=== PATIENT | female | born 1950 | race Caucasian/White ===

== ENCOUNTER → 2017-09-23 | Outpatient (CLI) | payer MEDICARE, OTHER ==
[~2017-09-23] MED LIST: ACIDOPHILUS1 EAC4 PO; AMITRIPTYLINE H25 M2 PO; ARICEPT10 M1 PO; ATORVASTATIN CA40 MG PO; CYMBALTA30 MG PO; CYPROHEPTADINE 44 MG PO; ELIQUIS2.5 MG PO; FLONASE 0.05%50 MCG NASAL; GABAPENTIN800 M1 PO; JARDIANCE25 MG PO; KLOR-CON 1010 MEQ PO; LASIX 40 MG TAB40 M2 PO; LIORESAL 10 MG10 MG PO; LISINOPRIL5 MG PO; LOPRESSOR100 M1 PO; LOW DOSE ASPIRI81 M1 PO; MACROBID 100 M100 M1 PO; MAGOX 400400 MG PO; METFORMIN HCL500 MG PO; MYSOLINE250 M1 PO; NITROGLYCERIN0.4 MG SUBLING; ONDANSETRON HCL8 M2 PO; ONDANSETRON ODT8 MG PO; PLAVIX 75 MG TA75 M1 PO; PRAVASTATIN SOD10 MG PO; PROTONIX40 M1 PO; TRULICITY0.75 MG/0. SUBQ; VESICARE10 M1 PO
--- NOTE | 2017-09-23 20:26 | 2DMMODE ---
[place] [address] 2 D/M-MODE ECHOCARDIOGRAM Name: ANNELIESE ABRAHAM Room: [facility]#: [id number] Admission: 09/23/17 Attend Phys: Dimitry Arellano, Discharge: Date of : 46 Date of Service: 09/23/172025 Report #: [id number] THIS REPORT FOR: //name// APPROVED REPORT Study performed: 09/23/2017 15:11:46 EXAM: Comprehensive 2D, Doppler, and color-flow Echocardiogram Patient Location: Out-Patient BSA: 1.64 HR: 74 bpm BP: 122/78 mmHg Other Information Study Quality: Good Indications Congestive Heart Failure Pacemaker 2D Dimensions LVEF(%): 59.18 (>50%) IVSd: 13.57 (7-11mm) LVOT Diam: 16.58 (18-24mm) LVDd: 38.96 mm PWd: 9.93 (7-11mm) Ascending Ao: 26.36 (22-36mm) LVDs: 26.93 (25-40mm) Aortic Root: 28.10 mm De Anda's LVEF: 59.18 % Volumes Left Atrial Volume (Systole) LA ESV Index: 43.80 mL/m2 Aortic Valve AoV Peak Tello.: 1.10 m/s AO Peak Gr.: 4.84 mmHg LVOT Max P.69 mmHg AO Mean Gr.: 2.86 mmHg LVOT Mean P.85 mmHg LVOT Max V: 0.65 m/s AO V2 VTI: 17.80 cm LVOT Mean V: 0.42 m/s ADOLFO (VTI): 1.56 cm2 LVOT V1 VTI: 12.86 cm AI Mobile: 2.48 m/s2 AI PHT: 578.20 [place] [address] 2 D/M-MODE ECHOCARDIOGRAM Name: MUMTAZ ABRAHAMA Room: [facility]#: [id number] Admission: 09/23/17 Attend Phys: Dimitry Arellano, Discharge: Date of : 46 Date of Service: 09/23/172025 Report #: [id number] E/A Ratio: 2.66 MV Decel. Time: 151.25 ms MV E Max Tello.: 0.75 m/s MV PHT: 43.86 ms MVA (PHT): 5.02 cm2 TDI E/Lateral E': 6.82 E/Medial E': 6.82 Medial E' Tello.: 0.11 m/s Lateral E' Tello.: 0.11 m/s Pulmonary Valve PV Peak Tello.: 0.74 m/s PV Peak Gr.: 2.20 mmHg Tricuspid Valve RAP Estimate: 5.00 mmHg TR Peak Gr.: 27.88 mmHg RVSP: 32.88 mmHg PA Pressure: 32.88 mmHg Left Ventricle The left ventricle is normal size. There is normal LV segmental wall motion. Mild concentric left ventricular hypertrophy. Left ventricular systolic function is normal. LVEF is 55-60%. This study is not technically sufficient to allow evaluation of the LV diastolic function. Right Ventricle The right ventricle is normal size. The right ventricular systolic function is normal. Defibrillator lead is present in the right ventricle. Atria Left atrium is moderately dilated. Right atrium is mildly dilated. Aortic Valve The aortic valve is normal in structure. Mild to moderate aortic regurgitation. There is no aortic valvular stenosis. Mitral Valve The mitral valve is normal in structure. Mild mitral regurgitation. No evidence of mitral valve stenosis. Tricuspid Valve The tricuspid valve is normal in structure. Moderate tricuspid regurgitation. The RVSP is 30-[place] [address] 2 D/M-MODE ECHOCARDIOGRAM Name: ANNELIESE ABRAHAM Room: [facility]#: [id number] Admission: 09/23/17 Attend Phys: Dimitry Arellano, Discharge: Date of : 46 Date of Service: 09/23/172025 Report #: [id number] Pulmonic Valve The pulmonary valve is normal in structure. Trace pulmonic regurgitation. Great Vessels The aortic root is normal in size. IVC is normal in size and collapses with >50% inspiration Pericardium There is no pericardial effusion. <Conclusion> The left ventricle is normal size. Mild concentric left ventricular hypertrophy. Left ventricular systolic function is normal. LVEF is 55-60%. Left atrium is moderately dilated. Right atrium is mildly dilated. Defibrillator lead is present in the right ventricle. Mild to moderate aortic regurgitation. Mild mitral regurgitation. Moderate tricuspid regurgitation. The RVSP is 30-35 mmHg. <ELECTRONICALLY SIGNED> By: Himanshu Camara MD, FACC 09/23/172025 25 25 Himanshu Camara MD, FACC /INF
== END ==
LOC: M.CRD 15:00
DX: I08.3 Combined rheumatic disorders of mitral, aortic and tricuspid valves (principal); I50.9 Heart failure, unspecified; I42.0 Dilated cardiomyopathy; Z95.0 Presence of cardiac pacemaker

== ENCOUNTER 2017-11-01 20:47 | Inpatient (IN) | payer MEDICARE, OTHER ==
[~2017-11-01] VITALS: Ht 157.5 cm; Wt 64.9 kg
[2017-11-01 20:48] VITALS: BP 163/104
[2017-11-01] MEDS ORDERED: FLONASE 0.05%50 MCG NASAL (20:53)
[2017-11-01] MEDS ORDERED: MYSOLINE250 M1 PO (20:54)
[2017-11-01] MEDS ORDERED: METFORMIN HCL500 MG PO (20:55)
[2017-11-01] MEDS ORDERED: PRAVASTATIN SOD10 MG PO (20:55)
[2017-11-01] MEDS ORDERED: LISINOPRIL5 MG PO (20:55)
[2017-11-01] MEDS ORDERED: KLOR-CON 1010 MEQ PO (20:56)
[2017-11-01] MEDS ORDERED: LOPRESSOR100 M1 PO (20:56)
[2017-11-01] MEDS ORDERED: CYPROHEPTADINE 44 MG PO (20:56)
[2017-11-01] MEDS ORDERED: LOW DOSE ASPIRI81 M1 PO (20:57)
[2017-11-01] MEDS ORDERED: NITROGLYCERIN0.4 MG SUBLING (20:57)
[2017-11-01] MEDS ORDERED: PLAVIX 75 MG TA75 M1 PO (20:57)
[2017-11-01 20:58] LABS: BE -2.8 mmol/L (-2 to +3); HCO3 21.2 mmol/L (22.0-26.0); PCO2 34.7 mmHg (35.0-45.0); PO2 248.7 mmHg (75.0-100.0); pH 7.404 (7.340-7.450)
[2017-11-01] MEDS ORDERED: GABAPENTIN800 M1 PO (20:58)
[2017-11-01] MEDS ORDERED: ATORVASTATIN CA40 MG PO (20:58)
[2017-11-01] MEDS ORDERED: ARICEPT10 M1 PO (20:58)
[2017-11-01] MEDS ORDERED: ELIQUIS2.5 MG PO (20:58)
[2017-11-01] MEDS ORDERED: LIORESAL 10 MG10 MG PO (20:59)
[2017-11-01] MEDS ORDERED: JARDIANCE25 MG PO (20:59)
[2017-11-01] MEDS ORDERED: CYMBALTA30 MG PO (20:59)
[2017-11-01] MEDS ORDERED: VESICARE10 M1 PO (20:59)
[2017-11-01] MEDS ORDERED: LASIX 40 MG TAB40 M2 PO (21:00)
[2017-11-01] MEDS ORDERED: PROTONIX40 M1 PO (21:00)
[2017-11-01] MEDS ORDERED: MAGOX 400400 MG PO (21:00)
[2017-11-01] MEDS ORDERED: TRULICITY0.75 MG/0. SUBQ (21:01)
[2017-11-01] MEDS ORDERED: ONDANSETRON ODT8 MG PO (21:01)
[2017-11-01] MEDS ORDERED: ONDANSETRON HCL8 M2 PO (21:01)
[2017-11-01 21:07] LABS: URINE BILIRUBIN NEGATIVE (Negative); URINE BLOOD TRACE (Negative); URINE CLARITY CLEAR; URINE COLOR YELLOW; URINE GLUCOSE-RANDOM 1+ (Negative); URINE KETONES 1+ (Negative); URINE LEUKOCYTES-REFLEX NEGATIVE (Negative); URINE NITRITE-REFLEX NEGATIVE (Negative); URINE PROTEIN 2+ (Negative); URINE UROBILINOGEN 0.2 E.U./dl (0.2-1.0)
[2017-11-01 21:17] LABS: SQUAMOUS 4-10 Moderate /LPF (0-3)
[2017-11-01 21:18] LABS: BACTERIA-REFLEX >30 Many /HPF (None Seen); CASTS None Seen /LPF (None Seen); CRYSTALS None Seen /LPF (None Seen); URINE RBC None Seen /HPF (0-2); URINE WBC-REFLEX 6-15 Few /HPF (0-5)
[2017-11-01 21:27] LABS: ABSOLUTE BASOPHILS 0.1 thou/uL (0.0-0.2); ABSOLUTE MONOCYTES 0.5 thou/uL (0.0-1.2); ABSOLUTE NEUTROPHILS 4.9 thou/uL (1.6-8.1); EOSINOPHILS 0.6 %; HEMATOCRIT 43.1 % (37.0-47.0); HEMOGLOBIN 14.5 gm/dL (12.0-15.0); LYMPHOCYTES 15.9 %; MCH 32.3 pg (26.0-34.0); MCHC 33.7 g/dL (28.0-37.0); MONOCYTES 7.6 %; MPV 8.2 fl. (7.2-11.1); NUCLEATED RBCS 0 /100WBC; PLATELET COUNT* 183 thou/uL (150-400); POLYS 74.9 %; RBC 4.49 mil/uL (4.20-5.00); RDW-CV 13.4 % (10.5-14.5); WBC 6.5 thou/uL (4.0-11.0)
[2017-11-01 21:43] LABS: ANION GAP 12 mmol/L (7-16); BUN 29 mg/dL (7-18); CALCIUM 8.8 mg/dL (8.5-10.1); CHLORIDE 101 mmol/L (98-107); CO2 21 mmol/L (21-32); CREATININE 1.2 mg/dL (0.6-1.3); GLUCOSE 188 mg/dL (70-99); SODIUM 134 mmol/L (136-145)
[2017-11-01 21:45] LABS: APTT 25.2 Seconds (25.0-31.3); INR 1.1
--- NOTE | 2017-11-01 22:01 | NUR ---
FAMILY AT BEDSIDE AND SPOKE WITH DR. CABRERA. PT TOOK PRIMIDONE TONIGHT WHICH SHE HASN'T TAKEN SINCE JUNE. SON GENEVA ROSEN STATES PT HAS NEVER HAD TREMORS. PT WAS ADDICTED TO NARCOTICS AND USED WALKER PRIOR TO MOVING IN WITH HIM, HOWEVER PT IS NOW WALKING WITHOUT A WALKER, DOING LAUNDRY, GOING UP AND DOWNSTAIRS AT THE HOME. SON BELIEVES THAT SHE IS SEEKING ATTENTION.
[2017-11-01 22:03] LABS: ALBUMIN 3.5 g/dL (3.4-5.0); ALKALINE PHOSPHATASE 105 U/L (46-116); CK-MB MASS 0.6 ng/mL (<0.5-3.6); NT-PRO BRAIN NAT PEPTIDE 2124 pg/mL (<300); SGOT 39 U/L (15-37); SGPT 35 U/L (30-65); TOTAL BILIRUBIN 0.6 mg/dL (<0.1-1.0); TOTAL PROTEIN 7.3 g/dL (6.4-8.2); TROPONIN-I LEVEL <0.06 ng/mL (<0.06)
[2017-11-01 22:30] VITALS: BP 147/81
--- NOTE | 2017-11-01 22:31 | NUR ---
GENEVA ROSEN [phone]
[2017-11-01 22:45] VITALS: BP 135/76
[2017-11-02 04:00] VITALS: BP 135/88
--- NOTE | 2017-11-02 05:11 | NUR ---
PT ADMITTED FROM ER AT 2240 VIA STRETCHER AND MOVED TO [facility]OPS[facility] BED PER STAFF. PT HAS VERY FLAT AFFECT, BUT WILL ANSWER QUESTIONS. TELEMETRY PACK APPLIED. PT ORIENTED TO ROOM, CALL SYSTEM TV CONTROLS AND BED CONTROL AND VOICED UNDERSTANDING BUT NEEDS REINFORCEMENT. VSS AND NO ACUTE CHANGES DURIGN SHIFT. APONTE INTACT AND PATENT DRAINING CLEAR YELLOW URINE TO BEDSIDE BAG. WILL CONITNUE TO MONITOR
[2017-11-02 09:30] VITALS: BP 147/92
[2017-11-02 12:32] VITALS: BP 160/84
[2017-11-02 12:34] VITALS: BP 160/84
--- NOTE | 2017-11-02 15:48 | NUR ---
ASSUMED PT CARE AT 0700 PT IS ALERT AND ORIENTED X 4 PT DENIES PAIN OR SOA ON RA, PT IS UP WITH ASSIST X 1 PT IS VERY UNSTEADY SHAKES WHEN STANDING ALMOST FEEL AMBULATED PT TO BATHROOM PT ROXANNE FOR ASSISTANCE APPROPRIATELY PT IS A FALL RISK BED ALARM IS ON, PT HAS APONTE, PT IS ON ELIQUIS/ASPIRIN/PLAVIX NEUROLOGY CONCERNED ABOUT THIS COMBO OF MEDICATIONS THIS NURSE SPOKE WITH HOSPITALIST WHO STATED WILL CONTINUE TODAY AND WILL REASSESS TOMORROW HOSPITALIST CONSULTED CARDIOLOGY, PT HAS PACEMAKER AND STENTS, PT CAN TURN SELF REFUSES TO DO SO PT HAS BEEN TURNED Q 2 HOURS BY STAFF, CASE MANAGEMENT HAS BEEN CONSULTED, PT IS SR 1ST ON THE MONITOR, WILL CONTINUE TO MONITOR
[2017-11-02 16:00] VITALS: BP 116/71
[2017-11-02 20:00] VITALS: BP 136/83
[2017-11-03] VITALS (7 sets, daily range): BP systolic 121–165; BP diastolic 71–91
[2017-11-03 05:11] LABS: HEMOGLOBIN 13.9 gm/dL (12.0-15.0); MCH 31.9 pg (26.0-34.0); MCV 96.7 fL (80.0-100.0); MPV 8.2 fl. (7.2-11.1); RBC 4.35 mil/uL (4.20-5.00); RDW-CV 13.6 % (10.5-14.5); WBC 5.6 thou/uL (4.0-11.0)
[2017-11-03 05:35] LABS: CALCIUM 8.9 mg/dL (8.5-10.1); CREATININE 1.3 mg/dL (0.6-1.3); MAGNESIUM 1.1 mg/dL (1.8-2.4); POTASSIUM 4.1 mmol/L (3.5-5.1)
--- NOTE | 2017-11-03 06:06 | NUR ---
ASSUMED CARE OF PT AFTER REPORT AT 1930. PT A&OX4 BUT FORGETFUL. VSS. PHYSICAL ASSESSMENT COMPLETED AND CHARTED. PT ON RA WITH 99% O2 SAT. PT TRACING SR 1ST DEG ON TELE. PT UP WITH 1 ASSIST TO TOILET. PT WITH APONTE TO DD. DENIES ANY PAIN OR DISCOMFORT. HOURLY ROUNDING OBSERVED. CALL LIGHT WITHIN REACH. BED IN ALARM ON. BED IN LOW POSITION.
--- NOTE | 2017-11-03 10:40 | EKG ---
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: REGIS : [id number] Requested By: Henok Luna Order Number: [id number] MD: Bal Meyer Measurements Intervals [place] Rate: 93 P: WI: QRS: 38 QRSD: 89 T: 200 QT: 327 QTc: 407 Interpretive Statements Atrial fib with moderate response RSR' in V1 or V2, right VCD Nonspecific repol abnormality, diffuse leads No previous ECG available for comparison Electronically Signed On 11-03-2017 10:39:52 CDT by Bal Meyer [email or web address] <ELECTRONICALLY SIGNED> By: Bal Meyer MD, [facility] 11/03/17 1039 52 52 Bal Meyer MD, [facility] /EPI
--- NOTE | 2017-11-03 18:19 | NUR ---
ASSUMED CARE OF PT AT 0735. PT REMAINS A&O, CALM AND COOPERATIVE. PT HAS HAD NO C/O PAIN OR DISTRESS TODAY. VSS ON ROOM AIR AND PT UP TO THE BATHROOM WITH SBA, VOIDING VIA THE TOILET. PT HAD SOME C/O LOOSE STOOLS AND NAUSEA TODAY. THIS NURSE PLACED A HAT INT HE TOLILET AND ASKED THE PT TO CALL THE NEXT TINME SHE HAD TO HAVE A BM, AND SPOKE WITH THE PROVIDER AND GOT SOME ANTIOMETICS ORDERED THAT EFFECTIVELY REDUCED THE PATIENTS NAUSEA TO A TOLERABLE LEVEL. PT HAD NO MORE LOOSE STOOLS AND HAS HAD NO MOR E C/O NAUSEA. HOURLY ROUNDING COMPLETED FOR PT COMFORT AND SAFTEY. NURSIGN WILL CONTINUE TO MONITOR.
[2017-11-04 04:39] VITALS: BP 125/67
--- NOTE | 2017-11-04 04:59 | NUR ---
ASSUMED CARE OF PT AFTER REPORT AT 1930. PT A&OX4. VSS. PHYSICAL ASSESSMENT COMPLETED & CHARTED. PT ON RA WITH 92% O2 SAT. PT TRACING SR 1ST DEG ON TELE. PT UP STANDBY ASSIST ON TELE. PT HAD 6 BOUTS OF DIARRHEA TONIGHT.STOOL SAMPLE SENT TO LAB FOR CULTURE. STARTED ON ISOLATION PROTOCOL FOR POSS C. DIFF.PTS MAGNESIUM IS 1.4-MEDS GIVEN PER ELETROLYTE PROTOCOL. DENIES ANY PAIN OR DISCOMFORT. CALL LIGHT WITHIN REACH. BED IN LOW POSITION.
[2017-11-04 08:07] VITALS: BP 106/79
--- NOTE | 2017-11-04 09:04 | NUR ---
ASSUMED CARE OF PT AT 0730. PT RESTING IN BED WAITING FOR BREAKFAST. PT A&0X4, DENIES ANY PAIN OR SHORTNESS OF BREATH AT THIS TIME. PT STATES SHE IS READY TO GO HOME. 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 PT ON RA SAT UPPER 90'S. PT UP SBA TO BATHROOM. PT COMPLAINS OF DIARRHEA. CDIFF PENDING AT THIS TIME. PT IS IN CONTACT ISOLATION TO RULE OUT CDIFF. MAGNESIUM BEING REPLACED PER ELECTROLYTE PROTOCOL. AM ASSESSMENT CHARTED. MEDICATIONS PER MAY. PT STATES HER FAMILY IS UNABLE TO BRING IN HER DM MEDICATION-REFER EMAR. BLOOD SUGARS STABLE. PT GOAL FOR TODAY IS TO INCREASE ACTIVITY, UP TO CHAIR FOR MEALS, AWAIT CDIFF RESULTS AND POSSIBLE DISCHARGE HOME THIS AFTERNOON. PT REPOSITIONS SELF WITH REMINDERS. HOURLY ROUNDING OBSERVED. BED IN LOW POSITION. BED ALARM IN PLACE. FALL PRECAUTIONS IN PLACE. CALL LIGHT WITHIN REACH. WILL CONTINUE PLAN OF CARE.
[2017-11-04 11:49] VITALS: BP 102/70
--- NOTE | 2017-11-04 12:51 | EKG ---
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 : 1950 Requested By: Dank Munoz Order Number: [id number] Kerrie MD: Bal Meyer Measurements Intervals [place] Rate: 85 P: 203 MO: 162 QRS: 34 QRSD: 100 T: 166 QT: 368 QTc: 438 Interpretive Statements Sinus rhythm RSR' in V1 or V2, right VCD Repol abnrm, possible ischemia Compared to ECG 11/01/2017 20:53:19 Possible ischemia now present Electronically Signed On 11-04-2017 12:51:05 CDT by Bal Meyer [email or web address] <ELECTRONICALLY SIGNED> By: Bal Meyer MD, [facility] 11/04/17 1251 [id number] Bal Meyer MD, [facility] /EPI
--- NOTE | 2017-11-04 16:42 | NUR ---
SW met with pt to complete initial assessment, introduce self, and SW role. Pt alert, oriented, pleasant. Pt lives with son and son's family; pt moved from living alone in [place] in May. SW discussed dc planning and pt plans to dc home with son and family. SW mentioned possibility of placement in the future or at dc and pt said she did not feel she needed placement at this time and says her bedroom is on main level of son's home and she also has a cane and walker if needed. Pt does not have hx of HH services and said she did not anticipate needing HH services at dc. SW to continue to follow to assist with safe dc planning.
--- NOTE | 2017-11-04 18:18 | NUR ---
NO ACUTE CHANGES THROUGHOUT SHIFT, REFER TO CHARTING. PT COMPLAINED OF NAUSEA THIS AFTERNOON-TREATED WITH PRN PROMETHAZINE WITH PARTIAL RELIEF. PT PROGRESSING TOWARDS GOALS. PT HAD MULTIPLE LOOSE STOOLS THROUGHOUT SHIFT. AWAITING CDIFF RESULTS. PT STARTED ON PROBIOTIC PER DR HAWTHORNE. IN CONTACT ISOLATION TO RULE OUT CDIFF. CONTINUES TO TRACE SR WITH FIRST DEGREE ON THE SEAT JOINER. ON RA SAT UPPER 90'S. PT DENIES ANY PAIN OR SHORTNESS OF BREATH. PT UP SBA TO BATHROOM. MEDICATIONS PER MAY. PT REPOSITIONS SELF. HOURLY ROUNDING OBSERVED. BED IN LOW POSITION. CALL LIGHT WITHIN REACH. WILL CONTINUE PLAN OF CARE.
[2017-11-04 20:00] VITALS: BP 101/56
[2017-11-05] VITALS: BP 107/52
--- NOTE | 2017-11-05 03:57 | NUR ---
ASSUMED PT CARE AT 1930. ASSESSMENT COMPLETED CHARTED. ABLE TO MAKE NEEDS KNOWN. C/O PAIN BUT REFUSES TYLENOL LIKE SHE TAKES AT HOME AND STATES NEVER MIND THEN". RESTING IN BED AT THIS TIME, A LITTLE AGITTATED THAT BED ALARM IS ON. WILL CONTINUE TO MONITOR.
[2017-11-05 08:21] VITALS: BP 118/65
[2017-11-05] MEDS ORDERED: ACIDOPHILUS1 EAC4 PO (11:31)
[2017-11-05] MEDS ORDERED: MACROBID 100 M100 M1 PO (11:31)
[2017-11-05] MEDS ORDERED: AMITRIPTYLINE H25 M2 PO (11:31)
[2017-11-05 14:08] VITALS: BP 118/65
--- NOTE | 2017-11-05 15:45 | NUR ---
PT DC'D HOME WITH SON AND ALL BELONGINGS. IV REMOVED INTACT BEFORE DISMISSAL. PT ACKNOWLEDGED DISCHARGE MEDICATIONS AND INSTRUCTIONS. PT SENT WITH RX
== END 2017-11-05 15:45 | disposition home or self-care (01) | DRG 70 ==
LOC: M.ERS 20:47 → M.2W 22:04 → M.TBA-ER 22:04 → M.2W 22:38
PROVIDERS: Family Medicine; Internal Medicine; ADMIT Family Medicine
DX: G93.41 Metabolic encephalopathy (principal); R65.11 Systemic inflammatory response syndrome (SIRS) of non-infectious origin with acute organ dysfunction; N39.0 Urinary tract infection, site not specified; I48.1 Persistent atrial fibrillation; I50.32 Chronic diastolic (congestive) heart failure; E11.42 Type 2 diabetes mellitus with diabetic polyneuropathy; E78.5 Hyperlipidemia, unspecified; I10 Essential (primary) hypertension; K21.9 Gastro-esophageal reflux disease without esophagitis; G25.0 Essential tremor; I25.10 Atherosclerotic heart disease of native coronary artery without angina pectoris; G47.00 Insomnia, unspecified; Z86.73 Personal history of transient ischemic attack (TIA), and cerebral infarction without residual deficits; Z79.01 Long term (current) use of anticoagulants; Z79.82 Long term (current) use of aspirin; Z79.899 Other long term (current) drug therapy; Z82.0 Family history of epilepsy and other diseases of the nervous system